=== PATIENT | male | born 1965 | race Caucasian/White ===

== ENCOUNTER 2024-06-07 09:02 | Emergency (ER) | payer OTHER, SELFPAY ==
--- NOTE | ~2024-06-07 | XR_ITS ---
EXAMINATION: XR FINGER, LEFT CLINICAL INFORMATION: laceration COMPARISON: None available. TECHNIQUE: Second digit of the left hand. FINDINGS: Acute comminuted cortical disruption involving the distal phalanx of the second digit. The carpal bones are intact. The metacarpal bones are intact. Distal radius and ulna are intact. The phalanges of the first, third fourth and fifth digits are intact. XR/XR finger LT min 2V IMPRESSION: Acute comminuted fracture, distal phalanx second digit left hand. Electronically signed by: Ryland Lewis MD 06/07/2024 09:43 AM TRAVIS
[2024-06-07 09:07] VITALS: BP 143/88; PULSE 78; RESP 18; TEMP 36; O2SAT 99; BMI 26.6
[2024-06-07 18:22] VITALS: BP 146/83; PULSE 73; RESP 16; TEMP 36.9; O2SAT 98
--- OUTSIDE RECORDS SUMMARY | 2024-06-07 18:29 | XMS_ITS | Continuity of Care Document ---
Author Organization [facility] Address [address] [place] [address]- Care Team Providers Care Product Safety Associate Name Role Phone Mckenna Bonilla MD Primary Care Physician [place] [facility] [place]/24 [facility] [address] [place], [place] [phone] Encounter Type: Triage Allergies, Adverse Reactions, Alerts Substance Criticality Severity Reaction Reaction Severity Status lisinopril headache Active Immunizations Given and Recorded Vaccine Date Status Refusal Reason tetanus/diphtheria/pertussis, acel(Tdap) 04/03/23 Given tetanus/diphtheria/pertussis, acel(Tdap) 01/02/14 Given pneumococcal 20-valent conjugate vaccine 04/03/23 Given influenza virus vaccine, inactivated 04/03/23 Give n influenza virus vaccine, inactivated 06/10/19 Give n influenza virus vaccine, inactivated 03/30/18 Give n influenza virus vaccine, inactivated 06/04/17 Give n influenza virus vaccine, inactivated 02/19/15 Give n influenza virus vaccine, inactivated 1 02/06/14 Re corded influenza virus vaccine, inactivated 2 01/30/11 Gi rodrick influenza virus vaccine, inactivated 3 01/28/10 Gi rodrick hepatitis B adult vaccine 06/10/19 Given hepatitis B adult vaccine 03/30/18 Given pneumococcal 23-valent vaccine 06/04/17 Given Measles/Mumps/Rubella Virus Vaccine 4 01/09/14 Giv en diphtheria-tetanus toxoids (DT) 5 01/16/09 Given FluLaval (oldterm) 6 01/16/09 Given Influenza Inactive (IM) (oldterm) 7 03/21/08 Given 1Location History: [facility] 2Admin Note: VIS GIVEN VIS DATE 11/19/10spanish 3Admin Note: vis given 12/04/09 4Result Comment: [01/09/2014] Reconstituted with sterile diluent Lot [id number] 06/13 5Admin Note: vis given in [place] 6Admin Note: vis given in [place] 7Admin Note: vis given Medications atorvastatin 80 mg oral tablet 1 tablet = 80 mg, By Mouth, Daily, # 90 tablet, 3 Refills, Maintenance, 04/03/23 8:38:00 AM EST, [facility]/pharmacy #[id number], label in [place], all scripts, 165.1, cm, 04/03/23 8:12:00 EST, Height Start Date: 04/03/23 Stop Date: 03/28/24 Status: Ordered Quantity: 90.0 Unit: tablet Repeat number: 4 diclofenac 1% topical gel See Instructions, PLEASE SEE ATTACHED FOR DETAILED DIRECTIONS, # 100 Gm, 1 Refills, Maintenance, 06/29/23 2:35:00 PM EST, [facility] STORE [id number], 25, PLEASE SEE ATTACHED FOR DETAILED DIRECTIONS, 165.1, cm, 04/03/23 8:12:00 EST, Height Start Date: 06/29/23 Status: Ordered Quantity: 100.0 Unit: g Repeat number: 1 diclofenac 1% topical gel 1 application, Topically, 4 times a day, do not use for more than 7 days, # 100 Gm, 0 Refills, Maintenance, 08/17/23 1:17:00 PM EDT, Gel, [facility]/pharmacy #[id number], Partial fill upon patient request if the prescription is for a schedule II opioid drug., 168, cm, 08/17/23 8:30:00 EDT, Height, 77, kg, 08/17/23 8:30:00 EDT, Dry Weight Start Date: 08/17/23 Status: Ordered Quantity: 100.0 Unit: g Repeat number: 1 dulaglutide 1.5 mg/0.5 mL subcutaneous solution = 1.5 mg, Subcutaneous Infusion, Every week, rotate injection sites., # 4 each, 5 Refills, Maintenance, 05/03/24 7:14:00 PM EST, [facility]/pharmacy #[id number], label in [place], all scripts, 168, cm, 11/18/23 9:45:00 EDT, Height, 77, kg, 08/17/23 8:30:00 EDT, Dry Weight Start Date: 05/03/24 Stop Date: 10/18/24 Status: Ordered Quantity: 4.0 Unit: each Repeat number: 6 Indication: Type 2 diabetes mellitus without complications FLUoxetine 20 mg oral capsule via psychiatry, Refills 0, Maintenance, 04/03/23 8:46:00 AM EST Start Date: 04/03/23 Status: Ordered Repeat number: 1 FREESTYLE 28G LANCETS FREESTYLE 28G LANCETS, See Instructions, # 200 Unknown, 1 Refills, Maintenance, USE DIRECTED TO TEST BLOOD GLUCOSE 3 TIMES A DAY FOR TYPE 2 DIABETES MELLITUS, 02/11/24 1:01:00 PM EDT, 168, cm, 11/18/23 9:45:00 EDT, Height, 77, kg, 08/17/23 8:30:00 EDT, Dry Weight Start Date: 02/11/24 Status: Ordered Quantity: 200.0 Unit: Unknown Repeat number: 1 Freestyle Lancets See Instructions, # 200 each, Refills 1, Tot. Refills 1, Maintenance, Dx E11.9 use as directed to test blood glucose TID for Type 2 Diabetes Mellitus duration lifetime, 11/16/23 11:25:00 AM EDT, Supply, 168, cm, 08/18/23 10:41:00 EDT, Height, 77, kg, 08/17/23 8:30:00 EDT, Dry Weight Start Date: 11/16/23 Status: Ordered Quantity: 200.0 Unit: each Repeat number: 2 Freestyle Lite Test Strips See Instructions, # 300 each, Refills 1, Tot. Refills 1, Maintenance, Dx E11.9 use as directed to test blood glucose TID Duration lifetime, 11/16/23 11:26:00 AM EDT, Supply, 168, cm, 08/18/23 10:41:00EDT, Height, 77, kg, 08/17/23 8:30:00 EDT, Dry Weight Start Date: 11/16/23 Status: Ordered Quantity: 300.0 Unit: each Repeat number: 2 glucose 4 gm oral tablet, chewable 4 tablet = 16 Gm, Chew, Once, PRN for low blood sugar, as needed for low blood sugar. may repeat in15 to 20 minutes if blood sugar still < 60 mg/dL, # 50 tablet, 3 Refills, Soft Stop, 04/03/23 8:38:00 AM EST, Chew Tablet, [facility]/pharmacy #[id number], label in [place], 165.1, cm, 04/03/23 8:12:00 EST, Height Start Date: 04/03/23 Status: Ordered Quantity: 50.0 Unit: tablet Repeat number: 4 ibuprofen 400 mg oral tablet 400 mg, 1, tablet, By Mouth, 2 times a day with meals, PRN, # 20 tablet, Refills 0, Tot. Refills 0,Maintenance, for fever, 09/23/22 1:16:00 PM EDT, Route to Pharmacy Electronically, [facility]/pharmacy #[id number], label in [place], 165.1, cm, 09/23/22 9:42:00 EDT, Height Start Date: 09/23/22 Stop Date: 10/03/22 Status: Ordered Quantity: 20.0 Unit: tablet Repeat number: 1 lamotrigine 150 mg oral tablet See Instructions, TOME ELLYN TABLETA DOS VECES AL KAREEN, # 180 tablet, 3 Refills, Maintenance, :54:00 PM EST, [id number], 168, cm, 11/18/23 9:45:00 EDT, Height, 77, kg, 08/17/23 8:30:00 EDT, Dry Weight Start Date: 04/19/24 Status: Ordered Quantity: 180.0 Unit: tablet Repeat number: 1 levETIRAcetam 1000 mg oral tablet See Instructions, TOME ELLYN TABLETA DOS VECES AL KAREEN, # 180 tablet, 3 Refills, Maintenance, 10/07/23 9:38:00 AM EDT, [id number], 168, cm, 08/18/23 10:41:00 EDT, Height, 77, kg, 08/17/23 8:30:00 EDT, Dry Weight Start Date: 10/07/23 Status: Ordered Quantity: 180.0 Unit: tablet Repeat number: 1 Lidoderm 5% film 1 patch, Topically, Daily, remove patches after 12 hours, # 10 patch, 0 Refills, Maintenance, 08/17/23 1:17:00 PM EDT, [facility]/pharmacy #[id number], Partial fill upon patient request if the prescription is for a schedule II opioid drug., 1 patch Topically Daily,Instr:remove patches after 12 hours, 168, cm, 08/17/23 8:30:00 EDT, Height, 77, kg, 08/17/23 8:30:00 EDT, Dry Weight Start Date: 08/17/23 Status: Ordered Quantity: 10.0 Unit: patch Repeat number: 1 losartan 50 mg oral tablet See Instructions, JOSSELINE BOONE ROBIN JUÁREZ, # 90 tablet, 3 Refills, Maintenance, 03/15/24 2:26:00 PM EST, [facility] STORE [id number], 168, cm, 11/18/23 9:45:00 EDT, Height, 77, kg, 08/17/23 8:30:00 EDT, Dry Weight Start Date: 03/15/24 Status: Ordered Quantity: 90.0 Unit: tablet Repeat number: 1 metFORMIN 750 mg oral tablet, extended release 1 tablet = 750 mg, By Mouth, 2 times a day before breakfast and dinne, with evening meal, # 180 tablet, 4 Refills, Maintenance, 06/05/23 4:47:00 PM EST, ER Tablet, [facility]/pharmacy #[id number], Partial fill uponpatient request if the prescription is for a schedule II opioid drug., 165.1, cm, 04/03/23 8:12:00 EST, Height Start Date: 06/05/23 Status: Ordered Quantity: 180.0 Unit: tablet Repeat number: 5 Indication: Type 2 diabetes mellitus without complications traZODone 50 mg oral tablet via psychiatry, Refills 0, Maintenance, 04/03/23 8:46:00 AM EST Start Date: 04/03/23 Status: Ordered Repeat number: 1 Problem List Condition Confirmation Course Effective Dates Status H ealth Status Informant [place] cardiac risk 10% in next 10 years Confirmed 2017 Active Cataract 1 Confirmed Active Chorioretinal scar of right eye 2 Confirmed Active Seizure, complex partial Confirmed Active Ischemic changes, chronic small vessel. on MRI 3, 4 Confirmed 04/2018 Active Depression 5 Confirmed Active Nasal septal deviation, per ENT -2014 Confirmed Active Diabetes mellitus Confirmed 2016 Active Dyslipidemia Confirmed Active Cardiac risk 14% /10 years per 2020 calculation Confirmed 2019 Active H/O colonoscopy Confirmed 10/2013 Active Hypertrophy, nasal, turbinate, per ENT Confirmed Active IFG (impaired fasting glucose) Confirmed Active Positive QuantiFERON-TB Gold test , mised TB team visit [id number], wrote letter to von Confirmed Active Abnormal brain MRI - and has arachnoid cyst Confirmed 03/2022 Active Sleep apnea, obstructive Confirmed Active Overweight Confirmed Active *[facility]N/[facility]/Banking Specialist-Chio Lopez-[phone]/Health halfway, active care coordination Confirmed Active 1bilateral 2per eye team note 3again on [facility] MRI 4per 04-29-2018 [place] [facility] 5see 01-16-09 visit note. hospitalized in [place] around 1998 Social History Social History Type Response Smoking Status Never smoker entered on: 10/04/13 Sex Male Sex Representation Male (finding) Patient Care team information Care Team Personnel Name: Mckenna Bonilla MD Position: [facility] Physician - Primary Care Member Role: PCP Address: [address] [place] [address] Telecom: Care Team Related Persons Name: GENEVIEVE FRANK Name: RICA ROQUE Name: JYOTHI SANCHEZ Insurance Providers Guarantor name: GUERITA GARCIASUS Health Plan Information #: 1 Payer: [facility] CARE ALLIANCE/ONE CARE Member Number: NA Policy Number: NA Group Number: NA Health Plan Information #: 2 Payer: [facility] Member Number: NA Policy Number: NA Group Number: NA
--- OUTSIDE RECORDS SUMMARY | 2024-06-07 18:29 | XMS_ITS | Continuity of Care Document ---
Author Organization [facility] Address [address] [place] [address]- Care Team Providers Care Gun Number Name Role Phone Mckenna Bonilla MD Primary Care Physician [place] [facility] [place](s): 04/29/24 - 05/29/24 [facility] [address] [place], [place] [address] [[email or web address] Encounter Type: Triage Allergies, Adverse Reactions, Alerts [...] (IM) (oldterm) 7 03/21/08 Given 1Location History: [facility] 2Admin Note: VIS GIVEN VIS DATE 11/19/10spanish 3Admin Note: vis given 12/04/09 4Result Comment: [01/09/2014] Reconstituted with sterile diluent Lot [id number] 06/13 5Admin Note: vis given in Iranian 6Admin Note: vis given in Iranian 7Admin Note: vis given Medications atorvastatin 80 mg oral tablet 1 tablet = 80 mg, By Mouth, Daily, # 90 tablet, 3 Refills, Maintenance, 04/03/23 8:38:00 AM EST, [facility]/pharmacy #[id number], label in [place], all scripts, 165.1, cm, 04/03/23 8:12:00 EST, Height Start Date: 04/03/23 Stop Date: 03/28/24 Status: Ordered Quantity: 90.0 Unit: tablet Repeat number: 4 diclofenac 1% topical gel See Instructions, PLEASE SEE ATTACHED FOR DETAILED DIRECTIONS, # 100 Gm, 1 Refills, Maintenance, 06/29/23 2:35:00 PM EST, [facility] STORE 61498, 25, PLEASE SEE ATTACHED FOR DETAILED DIRECTIONS, 165.1, cm, 04/03/23 8:12:00 EST, Height Start Date: 06/29/23 Status: Ordered Quantity: 100.0 Unit: g Repeat number: 1 diclofenac 1% topical gel 1 application, Topically, 4 times a day, do not use for more than 7 days, # 100 Gm, 0 Refills, Maintenance, 08/17/23 1:17:00 PM EDT, Gel, [facility]/pharmacy #0373, Partial fill upon [...] 5 Refills, Maintenance, 05/03/24 7:14:00 PM EST, [facility]/pharmacy #0373, label in Iranian, all scripts, 168, cm, 11/18/23 9:45:00 EDT, [...] Stop, 04/03/23 8:38:00 AM EST, Chew Tablet, [facility]/pharmacy #0373, label in Iranian, 165.1, cm, 04/03/23 8:12:00 EST, Height Start Date: 04/03/23 Status: Ordered Quantity: 50.0 Unit: tablet Repeat number: 4 ibuprofen 400 mg oral tablet 400 mg, 1, tablet, By Mouth, 2 times a day with meals, PRN, # 20 tablet, Refills 0, Tot. Refills 0,Maintenance, for fever, 09/23/22 1:16:00 PM EDT, Route to Pharmacy Electronically, [facility]/pharmacy #[id number], label in Iranian, 165.1, cm, 09/23/22 9:42:00 EDT, Height Start Date: 09/23/22 Stop Date: 10/03/22 Status: Ordered Quantity: 20.0 Unit: tablet Repeat number: 1 lamotrigine 150 mg oral tablet See Instructions, TOME ELLYN TABLETA DOS VECES AL KAREEN, # 180 tablet, 3 Refills, Maintenance, :54:00 PM EST, [email or web address] STORE [id number], 168, cm, 11/18/23 9:45:00 EDT, Height, 77, kg, 08/17/23 8:30:00 EDT, Dry Weight Start Date: 04/19/24 Status: Ordered Quantity: 180.0 Unit: tablet Repeat number: 1 levETIRAcetam 1000 mg oral tablet See Instructions, TOME ELLYN TABLETA DOS VECES AL KAREEN, # 180 tablet, 3 Refills, Maintenance, 10/07/23 9:38:00 AM EDT, [email or web address] STORE [facility]6534, 168, cm, 08/18/23 10:41:00 EDT, Height, 77, kg, 08/17/23 8:30:00 EDT, Dry Weight Start Date: 10/07/23 Status: Ordered Quantity: 180.0 Unit: tablet Repeat number: 1 Lidoderm 5% film 1 patch, Topically, Daily, remove patches after 12 hours, # 10 patch, 0 Refills, Maintenance, 08/17/23 1:17:00 PM EDT, [facility]/pharmacy #[id number], Partial fill upon [...] 3 Refills, Maintenance, 03/15/24 2:26:00 PM EST, [facility] STORE 66941, 168, cm, 11/18/23 9:45:00 EDT, Height, 77, kg, 08/17/23 8:30:00 EDT, Dry Weight Start Date: 03/15/24 Status: Ordered Quantity: 90.0 Unit: tablet Repeat number: 1 metFORMIN 750 mg oral tablet, extended release 1 tablet = 750 mg, By Mouth, 2 times a day before breakfast and dinne, with evening meal, # 180 tablet, 4 Refills, Maintenance, 06/05/23 4:47:00 PM EST, ER Tablet, [facility]/pharmacy #0373, Partial fill uponpatient [...] Effective Dates Status H ealth Status Informant [place] cardiac risk 10% in next 10 years [...] Gold test , mised TB team visit 10333, wrote letter to von Confirmed Active Abnormal brain MRI - and has arachnoid cyst Confirmed 03/2022 Active Sleep apnea, obstructive Confirmed Active Overweight Confirmed Active *[facility]/Associate Professor Of Library Media-Chio Lopez-[phone]/Health [facility], active care coordination Confirmed Active 1bilateral 2per eye team note 3again on [facility] MRI 4per 04-29-2018 [place] [facility] 5see 01-16-09 visit note. hospitalized in [place] around 1998 Social History Social History Type Response Smoking Status Never smoker entered on: 10/04/13 Sex Male Sex Representation Male (finding) Patient Care team information Care Team Personnel Name: Mckenna Bonilla MD Position: [facility] Physician - Primary Care Member Role: PCP Address: [address] [place] [address] Telecom: Care Team Related Persons Name: GENEVIEVE FRANK Name: RICA ROQUE Name: JYOTHI SANCHEZ Insurance Providers Guarantor name: GUERITA GARCIASUS Health Plan Information #: 1 Payer: [facility] C[facility] ALLIANCE/ONE CARE Member Number: NA Policy Number: NA Group Number: NA Health Plan Information #: 2 Payer: [facility] Member Number: NA Policy Number: NA Group Number: NA
--- NOTE | 2024-06-07 18:55 | ED_ITS ---
HPI - Wound/Laceration General Chief Complaint: Wound/Laceration Stated Complaint: Finger lac Time Seen by Provider: 06/07/24 18:54 Source: patient and family (Sister) Mode of arrival: ambulatory Limitations: language barrier (1st language is Tunisian, speaks some Taiwanese, [facility] [place] translator and interpreter used) History of Present Illness ED Provider: Dr. Reymundo Deal HPI narrative: 59-year-old male with a history of diabetes who accidentally dropped an air compressor on his left index finger yesterday at around 11:00 hours. Patient states that he was concerned that his finger continued to bleed and that he was a diabetic therefore he came to the emergency department for evaluation. At the time my evaluation, the injury is 20 hours old. Patient was not know in his last tetanus vaccine was given. Related Data Previous Rx's ?Medication ?Instructions ?Recorded cephalexin 500 mg capsule 500 mg PO QID 7 days #28 caps 06/07/24 oxycodone 5 mg tablet 5 mg PO Q6H PRN pain #10 tabs 06/07/24 Allergies Allergy/AdvReac Type Severity Reaction Status Date / Time No Known Allergies Allergy Verified 06/07/24 09:09 Review of Systems 2 Review of Systems: Yes all other systems are reviewed and are negative PMFSH Social History Social History Smoked in Last 30 Days: No Use of substances other than those prescribed or required for medical reasons: No Advance Directives: No Advance Directives Information Provided: No Do you have a plan to hurt others: No Plan Physical Exam 2 Vital Signs: Vital Signs: Last Vital Signs Temp 98.5 F 06/07/24 18:22 Pulse 73 06/07/24 18:22 Resp 16 06/07/24 18:22 BP 146/83 H 06/07/24 18:22 Pulse Ox 98 06/07/24 18:22 O2 Del Method Room Air 06/07/24 18:22 BMI result Body Mass Index 26.6 Vital signs revealed an elevated blood pressure of 146/83 Exam: General: Awake, alert in no distress Extremities: There is ecchymosis and soft tissue swelling to the tip of the left index finger with a slight medial deformity of the tip, there is a superficial laceration which is almost circumferential. There is no obvious bone protruding from the skin. Patient has diminished light touch at the tip of the finger but this is secondary to soft tissue swelling. Psych: Pleasant, cooperative Medical Decision Making Medical Decision Making MDM Narrative: 59-year-old male with a history of diabetes who accidentally dropped an air compressor on his left index finger yesterday at around 11:00 hours. Physical examination revealed a near circumferential superficial with a crush injury to the distal phalanx. Patient was diminished touch at the tip of the finger but this is most likely caused by soft tissue swelling Differential diagnosis: ?Includes but is not limited to distal phalanx open fracture verses closed fracture, crush injury Course: 19:52 The patient's x-rays did reveal a comminuted fracture of the distal phalanx of the index finger. At this time I do not think that the patient has an open fracture and his injury is more consistent with a crush injury. I did dress the wound with bacitracin and a nonstick dressing. The patient's index middle and ring fingers were then taped together and placed in a ortho glass finger to wrist splint that was made by me. After application of the splint the patient's fingers appeared to be neurovascularly intact. Patient was given a Tdap vaccination. He was also given his 1st dose of Keflex 500 mg orally. He was started on Keflex 500 mg 4 times a day for 7 days prophylactically to try to prevent infection. I did discuss the patient's injury and management over tiger text with the orthopedic physician inside sales assistant, Sascha Clifton who agreed with the treatment plan and recommended follow-up with the orthopedic group for further management. Patient was given printed and verbal instructions and discharged home. Admission/Observation Consideration of admission/observation: Escalation of care including admission/observation considered (No) Independent Interpretation I performed an independent interpretation of an: Plain X-Ray Interpretation: My interpretation of the patient's left index finger your x-ray is as follows: Comminuted fracture of the distal phalanx Radiology Impression Discussion of test interpretation with radiology: I have reviewed the radiologist's reading. Radiologist Impression: EXAMINATION: XR FINGER, LEFT CLINICAL INFORMATION: laceration COMPARISON: None available. TECHNIQUE: Second digit of the left hand. FINDINGS: Acute comminuted cortical disruption involving the distal phalanx of the second digit. The carpal bones are intact. The metacarpal bones are intact. Distal radius and ulna are intact. The phalanges of the first, third fourth and fifth digits are intact. XR/XR finger LT min 2V IMPRESSION: Acute comminuted fracture, distal phalanx second digit left hand. Electronically signed by: Ryland Lewis MD 06/07/2024 09:43 AM Independent Historian Clinical information obtained from an independent historian. History obtained from or confirmed by: Other (Sister) Prescription Management I considered prescription management with: Pain Medication (Oxycodone) and Antibiotic (Keflex) Chronic Conditions Patient?s care impacted by: Diabetes Procedures Procedure Narrative Procedure Narrative: Left index finger comminuted distal phalanx fracture secondary to crush injury with superficial laceration, ortho glass splint application procedure note The patient's laceration was cleaned and dressed with a bacitracin nonstick dressing. The patient's index middle and ring fingers were alex-taped and a ortho glass splint covering the 3 fingers and extending to the wrist was made out of 3 in x 12 in ortho glass. The splint was held in place with two 3 in Jorge wraps. After application the patient was able to wiggle his fingers in his fingers appear to be neurovascularly intact. Splint was applied by me in the emergency department. Discharge Plan Discharge Clinical Impression: Closed comminuted fracture of distal phalanx of finger, Fracture of distal phalanx of left index finger Patient Disposition: Home, Self-Care Instructions: Finger Fracture (ED) Additional Instructions: You broke the distal phalanx of your index finger. This is broken into several pieces. You also crushed the tip of your finger which caused the superficial cuts around the finger. You were placed in a splint, do not get the splint wet and keep it in place until you follow-up with the orthopedic providers. Take Keflex 500 mg pills, 1 pill 4 times a day for 7 days to try to prevent an infection of your finger. Take ibuprofen 200 mg pills, 3 pills every 6 hours as needed for pain. Take Tylenol (acetaminophen) 500 mg pills, 2 pills every 4-6 hours as needed for pain. For pain not relieved by ibuprofen or Tylenol take oxycodone 5 mg pills, 1 pill every 4 hours as needed for pain. Do not drive or work while taking this medication since they can cause sleepiness. Oxycodone is a narcotic medication that can be addicting. If you are concerned about addiction you can ask the pharmacist for less pills or do not get this prescription filled. Call the orthopedic office tomorrow to t make a follow-up appointment within 3-7 days. Please return to the emergency department if your symptoms get worse or if you develop any symptoms that are concerning to you. Prescriptions: New oxycodone 5 mg tablet 5 mg PO Q6H PRN (Reason: pain) Qty: 10 0RF Rx Instructions: Patient may request partial refill; Partial Fill upon patient request. cephalexin 500 mg capsule 500 mg PO QID 7 Days Qty: 28 0RF Referrals: Ethan Mazariegos MD [Physician] - 1 week (Crush injury to left distal phalanx index finger, comminuted fracture of the distal phalanx with circumferential superficial laceration. Needs follow-up in 3-7 days. Patient placed in ortho glass splint.) Print Language: Tunisian
[2024-06-07] MEDS: Diphth,Pertus(ACell),Tet Adult 0.5 ML SYRINGE IM (19:54)
[2024-06-07] MEDS: Bacitracin Oint 0.9 GM PACKET 1 APPL TOPICAL (19:54)
[2024-06-07 19:59] VITALS: BP 136/91; PULSE 81; RESP 16; TEMP 36.7; O2SAT 98
[2024-06-07 20:23] VITALS: BP 136/91; PULSE 81; RESP 16; TEMP 36.7; O2SAT 98
[2024-06-07] MEDS: cephALEXin 500 MG CAPSULE PO (20:25)
== END 2024-06-07 20:27 | disposition home or self-care (01) ==
PROVIDERS: Emergency Provider Emergency Medicine Emergency Medical Services
DX: S62.631A Displaced fracture of distal phalanx of left index finger, initial encounter for closed fracture (principal); S61.211A Laceration without foreign body of left index finger without damage to nail, initial encounter; S60.022A Contusion of left index finger without damage to nail, initial encounter; M79.645 Pain in left finger(s); W45.8XXA Other foreign body or object entering through skin, initial encounter; Y93.9 Activity, unspecified; Y92.9 Unspecified place or not applicable; Y99.8 Other external cause status; Z23 Encounter for immunization
CPT/HCPCS: 29130; 73140; 90471; 90715; 99284

== ENCOUNTER → 2024-06-07 09:24 | Outpatient (BNV) | payer OTHER, SELFPAY | PROVIDERS: Visit Provider Radiology Diagnostic Radiology | DX: S62.601B Fracture of unspecified phalanx of left index finger, initial encounter for open fracture (principal) | CPT/HCPCS: 73140 ==

== ENCOUNTER 2024-06-10 08:11 | Outpatient (REF) | payer OTHER, SELFPAY ==
--- NOTE | ~2024-06-10 | XR_ITS ---
EXAMINATION: XR HAND 3 OR MORE VIEWS LEFT HISTORY: M79.642 - Pain in left hand COMPARISON: Comparison is made with the prior examination dated 06/07/2024. FINDINGS: Three views of the left hand are submitted. Osseous mineralization is normal. Again seen is a comminuted fracture of the distal phalanx of the index finger. The appearance is not significantly changed from the prior study. The joint spaces are preserved. The soft tissues are unremarkable. XR/XR hand LT min 3V IMPRESSION: Comminuted fracture of the distal phalanx of the index finger without change. Electronically signed by: Zachariah Bello MD 06/10/2024 09:34 AM EST
--- OUTSIDE RECORDS SUMMARY | 2024-06-10 08:16 | XMS_ITS | Continuity of Care Document ---
Author Organization [facility] Address [address] [place] [address]- Care Team Providers Care Spot Sprayer Name Role Phone Mckenna Bonilla MD Primary Care Physician Encounter [facility] Date(s): 05/10/24 - 06/09/24 [facility] [address] [place] [id number] Attending Physician: Admtr, [id number] Admitting Physician: Admtr, ArShala Referring Physician: Admtr, [id number] Encounter Type: Triage Allergies, Adverse Reactions, Alerts [...] (IM) (oldterm) 7 03/21/08 Given 1Location History: [facility] 2Admin Note: VIS GIVEN VIS DATE 11/19/10spani 3Admin Note: vis given 12/04/09 4Result Comment: [01/09/2014] Reconstituted with sterile diluent Lot [id number] 06/13 5Admin Note: vis given in Moroccan 6Admin Note: vis given in Moroccan 7Admin Note: vis given Medications atorvastatin 80 mg oral tablet 1 tablet = 80 mg, By Mouth, Daily, # 90 tablet, 3 Refills, Maintenance, 04/03/23 8:38:00 AM EST, [facility]/pharmacy #[id number], label in Moroccan, all scripts, 165.1, cm, 04/03/23 8:12:00 EST, Height Start Date: 04/03/23 Stop Date: 03/28/24 Status: Ordered Quantity: 90.0 Unit: tablet Repeat number: 4 diclofenac 1% topical gel See Instructions, PLEASE SEE ATTACHED FOR DETAILED DIRECTIONS, # 100 Gm, 1 Refills, Maintenance, 06/29/23 2:35:00 PM EST, [id number], 25, PLEASE SEE ATTACHED FOR DETAILED DIRECTIONS, 165.1, cm, 04/03/23 8:12:00 EST, Height Start Date: 06/29/23 Status: Ordered Quantity: 100.0 Unit: g Repeat number: 1 diclofenac 1% topical gel 1 application, Topically, 4 times a day, do not use for more than 7 days, # 100 Gm, 0 Refills, Maintenance, 08/17/23 1:17:00 PM EDT, Gel, [facility]/pharmacy #[id number], Partial fill upon patient request [...] 5 Refills, Maintenance, 05/03/24 7:14:00 PM EST, [facility]/pharmacy #[id number], label in Moroccan, all scripts, 168, cm, 11/18/23 9:45:00 EDT, [...] Stop, 04/03/23 8:38:00 AM EST, Chew Tablet, [facility]/pharmacy #[id number], label in Moroccan, 165.1, cm, 04/03/23 8:12:00 EST, Height Start Date: 04/03/23 Status: Ordered Quantity: 50.0 Unit: tablet Repeat number: 4 ibuprofen 400 mg oral tablet 400 mg, 1, tablet, By Mouth, 2 times a day with meals, PRN, # 20 tablet, Refills 0, Tot. Refills 0,Maintenance, for fever, 09/23/22 1:16:00 PM EDT, Route to Pharmacy Electronically, [facility]/pharmacy #[id number], label in Moroccan, 165.1, cm, 09/23/22 9:42:00 EDT, Height Start Date: 09/23/22 Stop Date: 10/03/22 Status: Ordered Quantity: 20.0 Unit: tablet Repeat number: 1 lamotrigine 150 mg oral tablet See Instructions, TOME ELLYN TABLETA DOS VECES AL KAREEN, # 180 tablet, 3 Refills, Maintenance, :54:00 PM EST, [id number], 168, cm, 11/18/23 9:45:00 EDT, Height, 77, kg, 08/17/23 8:30:00 EDT, Dry Weight Start Date: 04/19/24 Status: Ordered Quantity: 180.0 Unit: tablet Repeat number: 1 levETIRAcetam 1000 mg oral tablet See Instructions, TOME ELLYN TABLETA DOS VECES AL KAREEN, # 180 tablet, 3 Refills, Maintenance, 10/07/23 9:38:00 AM EDT, [facility], 168, cm, 08/18/23 10:41:00 EDT, Height, 77, kg, 08/17/23 8:30:00 EDT, Dry Weight Start Date: 10/07/23 Status: Ordered Quantity: 180.0 Unit: tablet Repeat number: 1 Lidoderm 5% film 1 patch, Topically, Daily, remove patches after 12 hours, # 10 patch, 0 Refills, Maintenance, 08/17/23 1:17:00 PM EDT, [facility]/pharmacy #[id number], Partial fill upon patient request if the prescription is for a schedule II opioid drug., 1 patch Topically Daily,Instr:remove patches after 12 hours, 168, cm, 08/17/23 8:30:00 EDT, Height, 77, kg, 08/17/23 8:30:00 EDT, Dry Weight Start Date: 08/17/23 Status: Ordered Quantity: 10.0 Unit: patch Repeat number: 1 losartan 50 mg oral tablet See Instructions, JOSSELINE RAMONA TODOS LOS JUÁREZ, # 90 tablet, 3 Refills, Maintenance, 03/15/24 2:26:00 PM EST, [id number], 168, cm, 11/18/23 9:45:00 EDT, Height, 77, kg, 08/17/23 8:30:00 EDT, Dry Weight Start Date: 03/15/24 Status: Ordered Quantity: 90.0 Unit: tablet Repeat number: 1 metFORMIN 750 mg oral tablet, extended release 1 tablet = 750 mg, By Mouth, 2 times a day before breakfast and dinne, with evening meal, # 180 tablet, 4 Refills, Maintenance, 06/05/23 4:47:00 PM EST, ER Tablet, [facility]/pharmacy #[id number], Partial fill uponpatient request if [...] Effective Dates Status H ealth Status Informant [place] cardiac risk 10% in next 10 years Confirmed 2017 Active Cataract 1 Confirmed Active Chorioretinal scar of right eye 2 Confirmed Active Seizure, complex partial Confirmed Active Ischemic changes, chronic small vessel. on MRI 3, 4 Confirmed 04/2018 Active Depression 5 Confirmed Active Nasal septal deviation, per ENT -2014 Confirmed Active Diabetes mellitus Confirmed 2017 Active Dyslipidemia Confirmed Active Cardiac risk 14% /10 years per 2020 calculation Confirmed 2020 Active H/O colonoscopy Confirmed 10/2013 Active Hypertrophy, nasal, turbinate, per ENT Confirmed Active IFG (impaired fasting glucose) Confirmed Active Positive QuantiFERON-TB Gold test , mised TB team visit 38635, wrote letter to rebook 6 Confirmed Active Abnormal brain MRI - and has arachnoid cyst Confirmed 03/2022 Active Sleep apnea, obstructive Confirmed Active Overweight Confirmed Active *[facility]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 hospitalized in [place] around 1998 6TB clinic NOS x 2- referral closed Social History Social History Type Response Smoking Status Never smoker entered on: 10/04/13 Sex Male Sex Representation Male (finding) Patient Care team information Care Team Personnel Name: Mckenna Bonilla MD Position: [facility] Physician - Primary Care Member Role: PCP Address: [address] [place] [address] Telecom: Care Team Related Persons Name: GENEVIEVE FRANK Name: RICA ROQUE Name: JYOTHI SANCHEZ Insurance Providers Guarantor name: GUERITA OSCAR JESUS Health Plan Information #: 1 Payer: [facility] CARE ALLIANCE/ONE CARE Member Number: NA Policy Number: NA Group Number: NA
--- OUTSIDE RECORDS SUMMARY | 2024-06-10 08:16 | XMS_ITS | Continuity of Care Document ---
Author Organization [facility] Address [address] [place] [address]- Care Team Providers Care Coil Winding Supervisor Name Role Phone Mckenna Bonilla MD Primary Care Physician Encounter [facility] NBR [id number] Date(s): 05/04/24 - 06/09/24 [facility] [address] [place] [address] Attending Physician: Michelle West MD Admitting Physician: Michelle West MD Encounter Type: Pre-OutPatient One Time Allergies, Adverse Reactions, Alerts Substance Criticality Severity [...] (IM) (oldterm) 7 03/21/08 Given 1Location History: [facility] 2Admin Note: VIS GIVEN VIS DATE 11/19/10spanish 3Admin Note: vis given 12/04/09 4Result Comment: [01/09/2014] Reconstituted with sterile diluent Lot [id number] 06/13 5Admin Note: vis given in Uzbek 6Admin Note: vis given in Uzbek 7Admin Note: vis given Medications atorvastatin 80 mg oral tablet 1 tablet = 80 mg, By Mouth, Daily, # 90 tablet, 3 Refills, Maintenance, 04/03/23 8:38:00 AM EST, [facility]/pharmacy #[id number], label in Uzbek, all scripts, 165.1, cm, 04/03/23 8:12:00 EST, Height Start Date: 04/03/23 Stop Date: 03/28/24 Status: Ordered Quantity: 90.0 Unit: tablet Repeat number: 4 diclofenac 1% topical gel See Instructions, PLEASE SEE ATTACHED FOR DETAILED DIRECTIONS, # 100 Gm, 1 Refills, Maintenance, 06/29/23 2:35:00 PM EST, [facility], 25, PLEASE SEE ATTACHED FOR DETAILED DIRECTIONS, 165.1, cm, 04/03/23 8:12:00 EST, Height Start Date: 06/29/23 Status: Ordered Quantity: 100.0 Unit: g Repeat number: 1 diclofenac 1% topical gel 1 application, Topically, 4 times a day, do not use for more than 7 days, # 100 Gm, 0 Refills, Maintenance, 08/17/23 1:17:00 PM EDT, Gel, [facility]/pharmacy #[id number], Partial fill upon patient request [...] 5 Refills, Maintenance, 05/03/24 7:14:00 PM EST, [facility]/pharmacy #[id number], label in Uzbek, all scripts, 168, cm, 11/18/23 9:45:00 EDT, [...] Stop, 04/03/23 8:38:00 AM EST, Chew Tablet, [facility]/pharmacy #0373, label in Uzbek, 165.1, cm, 04/03/23 8:12:00 EST, Height Start Date: 04/03/23 Status: Ordered Quantity: 50.0 Unit: tablet Repeat number: 4 ibuprofen 400 mg oral tablet 400 mg, 1, tablet, By Mouth, 2 times a day with meals, PRN, # 20 tablet, Refills 0, Tot. Refills 0,Maintenance, for fever, 09/23/22 1:16:00 PM EDT, Route to Pharmacy Electronically, [facility]/pharmacy #[id number], label in Uzbek, 165.1, cm, 09/23/22 9:42:00 EDT, Height Start Date: 09/23/22 Stop Date: 10/03/22 Status: Ordered Quantity: 20.0 Unit: tablet Repeat number: 1 lamotrigine 150 mg oral tablet See Instructions, TOME ELLYN TABLETA DOS VECES AL KAREEN, # 180 tablet, 3 Refills, Maintenance, :54:00 PM EST, [facility], 168, cm, 11/18/23 9:45:00 EDT, Height, 77, kg, 08/17/23 8:30:00 EDT, Dry Weight Start Date: 04/19/24 Status: Ordered Quantity: 180.0 Unit: tablet Repeat number: 1 levETIRAcetam 1000 mg oral tablet See Instructions, TOME ELLYN TABLETA DOS VECES AL KAREEN, # 180 tablet, 3 Refills, Maintenance, 10/07/23 9:38:00 AM EDT, [facility], 168, cm, 08/18/23 10:41:00 EDT, Height, 77, kg, 08/17/23 8:30:00 EDT, Dry Weight Start Date: 10/07/23 Status: Ordered Quantity: 180.0 Unit: tablet Repeat number: 1 Lidoderm 5% film 1 patch, Topically, Daily, remove patches after 12 hours, # 10 patch, 0 Refills, Maintenance, 08/17/23 1:17:00 PM EDT, [facility]/pharmacy #[id number], Partial fill upon patient request if the prescription is for a schedule II opioid drug., 1 patch Topically Daily,Instr:remove patches after 12 hours, 168, cm, 08/17/23 8:30:00 EDT, Height, 77, kg, 08/17/23 8:30:00 EDT, Dry Weight Start Date: 08/17/23 Status: Ordered Quantity: 10.0 Unit: patch Repeat number: 1 losartan 50 mg oral tablet See Instructions, JOSSELINE RAMONA TOS LOS JUÁREZ, # 90 tablet, 3 Refills, Maintenance, 03/15/24 2:26:00 PM EST, [facility], 168, cm, 11/18/23 9:45:00 EDT, Height, 77, kg, 08/17/23 8:30:00 EDT, Dry Weight Start Date: 03/15/24 Status: Ordered Quantity: 90.0 Unit: tablet Repeat number: 1 metFORMIN 750 mg oral tablet, extended release 1 tablet = 750 mg, By Mouth, 2 times a day before breakfast and dinne, with evening meal, # 180 tablet, 4 Refills, Maintenance, 06/05/23 4:47:00 PM EST, ER Tablet, [facility]/pharmacy #[id number], Partial fill uponpatient request if [...] Effective Dates Status H ealth Status Informant [place] cardiac risk 10% in next 10 years [...] Gold test , mised TB team visit 44523, wrote letter to rebook 6 Confirmed Active Abnormal brain MRI - and has arachnoid cyst Confirmed 03/2022 Active Sleep apnea, obstructive Confirmed Active Overweight Confirmed Active *[facility]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 hospitalized in [place] around 1998 6TB clinic NOS x 2- referral closed Social History Social History Type Response Smoking Status Never smoker entered on: 10/04/13 Sex Male Sex Representation Male (finding) Patient Care team information Care Team Personnel Name: Mckenna Bonilla MD Position: [facility] Physician - Primary Care Member Role: PCP Address: [address] [place] [address] Telecom: Care Team Related Persons Name: GENEVIEVE FRANK Name: RICA ROQUE Name: JYOTHI SANCHEZ Insurance Providers Guarantor name: GUERITA GARCIASUS Health Plan Information #: 1 Payer: [facility] CARE ALLIANCE/ONE CARE Member Number: [id number] Policy Number: NA Group Number: [facility] Health Plan Information #: 2 Payer: [facility] Member Number: [id number] Policy Number: NA Group Number: NA
== END 2024-06-10 08:12 | disposition home or self-care (01) ==
LOC: HO.HOSX 08:11
DX: S62.601B Fracture of unspecified phalanx of left index finger, initial encounter for open fracture (principal)
CPT/HCPCS: 73130; 99202

== ENCOUNTER 2024-06-10 09:00 | Outpatient (AMB) | payer OTHER, SELFPAY ==
--- NOTE | 2024-06-10 09:12 | MHC.OFFVIS ---
Vital Signs 06/10/24 09:20 Height 5 ft 8 in Weight 175 lb BMI 26.6 Intake Visit Reasons: FC-Lt index finger comminuted distal phalanx fx Intake Note: Donald is a 59 year old right hand dominant male who presents today for a fracture care visit. On 06/06/24 he dropped an air compressor on his left index finger. He was seen at [facility] ED the day after injury, where he was treated for laceration and fracture. Denies numbness or tingling. He is currently taking Motrin and Cephalexin. He was also prescribed Oxycodone but he is not taking it. Patient denies any pain right now. Denies prior surgeries or injuries to the left index finger. Allergies No Known Allergies Allergy (Verified 06/10/24 09:18) HPI HPI FC-Lt index finger comminuted distal phalanx fx: Details: Donald is a 59 year old right hand dominant male who presents today for a fracture care visit. On 06/06/24 he dropped an air compressor on his left index finger. He was seen at [facility] the day after injury, where he was treated for laceration and fracture. Denies numbness or tingling. He is currently taking Motrin and Cephalexin. He was also prescribed Oxycodone but he is not taking it. Patient denies any pain right now. Denies prior surgeries or injuries to the left index finger. Review of Systems Const All systems reviewed & are unremarkable except as noted in HPI and below Physical Exam Vital Signs: BMI result Body Mass Index 26.6 Extrem Other: Patient is alert, oriented, and in no acute distress. Neuro: Normal sensation of the tips of all digits of the left hand at this time Vascular: Cap refill brisk Pain: Patient reports no tenderness with palpation about the laceration and fracture site ROM: Patient is able to flex and extend all other digits of the left hand fully and without difficulty Skin: There is a large, semi circumferential laceration noted on the distal aspect of the left index finger just proximal to the nail General: No ecchymosis, erythema, or evidence of infection. Psych: Appears grossly normal Affect normal Attitude cooperative Results Reviewed Results Reviewed: X-rays obtained in the office today and independently reviewed by me, Lei Kimbrough PA-C, demonstrate minimally displaced, comminuted fracture of the distal phalanx of the left index finger. Assessment & Plan Assessment & Plan (1) Open fracture of phalanx of left index finger: Code(s): S62.601B - Fracture of unspecified phalanx of left index finger, initial encounter for open fracture Category: Medical Plan 1. Open fracture of distal phalanx of the index finger Date of injury 06/07/2024 Patient is educated about this injury Patient is educated about the typical recovery course At this time, patient was informed that we can likely manage this injury nonoperatively, as the wound appears very clean and the fracture is minimally displaced Patient was given a dry nonstick dressing in the office today, given extra supplies for daily dressing changes Patient was also placed into a fingertips splint to prevent flexion at the DIP joint of the left index finger Patient is educated he should keep the wound dry at all times, should not get it wet in any way Patient should continue with antibiotics prescribed in the emergency department Patient was amenable to this plan Patient will follow-up in 1 week for wound check, sooner with any acute concerns Orders: Orders XR hand LT min 3V Today M79.642 - Pain in left hand Coding Level of Care Code New Pt Level 3 (37368) Diagnoses Open fracture of phalanx of left index finger S62.601B
[2024-06-10 09:20] VITALS: BMI 26.6
== END 2024-06-10 09:57 | disposition home or self-care (01) ==
DX: S62.601B Fracture of unspecified phalanx of left index finger, initial encounter for open fracture (principal)
CPT/HCPCS: 99203

== ENCOUNTER → 2024-06-10 09:02 | Outpatient (BNV) | payer OTHER, SELFPAY | PROVIDERS: Visit Provider Radiology Diagnostic Radiology | DX: M79.642 Pain in left hand (principal) | CPT/HCPCS: 73130 ==

== ENCOUNTER 2024-06-20 08:27 | Outpatient (AMB) | payer OTHER, SELFPAY ==
[2024-06-20 08:54] VITALS: BMI 26.6
--- NOTE | 2024-06-20 08:54 | MHC.OFFVIS ---
Vital Signs 06/20/24 08:54 Height 5 ft 8 in Weight 175 lb BMI 26.6 Intake Visit Reasons: OV - Left Index finger fracture - 06/06/24 - w/ XR Intake Note: Donald is a 59 year old right hand dominant male who presents today for follow up of his left index finger fracture. On 06/06/24 he dropped an air compressor on his left index finger. At his last visit he was instructed to complete daily dressing changes and provided a finger tip splint to prevent flexion. States a few days ago he hurt/banged his finger on the sofa and head a pop noise, he felt no pain at the moment but has mild swelling. Allergies No Known Allergies Allergy (Verified 06/20/24 09:03) HPI HPI OV - Left Index finger fracture - 06/06/24 - w/ XR: Details: Donald is a 59 year old right hand dominant male who presents today for follow up of his left index finger fracture. On 06/06/24 he dropped an air compressor on his left index finger. At his last visit he was instructed to complete daily dressing changes and provided a finger tip splint to prevent flexion. States a few days ago he hurt/banged his finger on the sofa and head a pop noise, he felt no pain at the moment but has mild swelling. Denies numbness or tingling in the left hand. Denies any discharge from the wound at this time. No other acute complaints or concerns at this time. Review of Systems Const All systems reviewed & are unremarkable except as noted in HPI and below Physical Exam Vital Signs: BMI result Body Mass Index 26.6 Extrem Other: Patient is alert, oriented, and in no acute distress. Neuro: Normal sensation of the tips of all digits of the left hand at this time Vascular: Cap refill brisk Pain: Patient reports no tenderness with palpation about the laceration and fracture site ROM: Patient is able to flex and extend all other digits of the left hand fully and without difficulty Skin: There is a large, semi circumferential healing laceration noted on the distal aspect of the left index finger just proximal to the nail General: No ecchymosis, erythema, or evidence of infection. Psych: Appears grossly normal Affect normal Attitude cooperative Results Reviewed Results Reviewed: X-rays obtained in the office today and independently reviewed by me, Lei Kimbrough PA-C, demonstrate minimally displaced, comminuted fracture of the distal phalanx of the left index finger. Assessment & Plan Assessment & Plan (1) Open fracture of phalanx of left index finger: Code(s): S62.601B - Fracture of unspecified phalanx of left index finger, initial encounter for open fracture Category: Medical Plan 1. Open fracture of distal phalanx of the index finger Date of injury 06/07/2024 Patient is educated about this injury Patient is educated about the typical recovery course At this time, patient was informed that we can likely manage this injury nonoperatively, as the wound appears very clean and the fracture is minimally displaced Patient was given a dry nonstick dressing in the office today, given extra supplies for dressing changes Patient was also placed into a fingertips splint to prevent flexion at the DIP joint of the left index finger Patient is educated that he can now wash the laceration site with soap and water in the sink or the shower, but should avoid actively submerging the hand until follow-up Patient is also advised that he will require no further antibiotics, as his laceration appears to be healing well and without complication Patient was advised that he should continue to cover the laceration site when out and about, but if he is at home and able to keep it clean and dry he can remove the dressing Patient was amenable to this plan Patient will follow-up in 2 week for wound check with repeat x-rays, sooner with any acute concerns Orders: Orders XR hand LT min 3V Today M79.642 - Pain in left hand Coding Level of Care Code Global (66491) Diagnoses Open fracture of phalanx of left index finger S62.601B
== END 2024-06-20 09:21 | disposition home or self-care (01) ==
DX: S62.601B Fracture of unspecified phalanx of left index finger, initial encounter for open fracture (principal)
CPT/HCPCS: 99213

== ENCOUNTER 2024-06-20 08:27 | Outpatient (REF) | payer OTHER, SELFPAY ==
--- NOTE | ~2024-06-20 | XR_ITS ---
EXAMINATION: XR HAND, LEFT CLINICAL INFORMATION: M79.642 - Pain in left hand COMPARISON: June 10, 2024. TECHNIQUE: PA, lateral, and oblique views of the left hand. FINDINGS: Comminuted fracture distal phalanx second digit. No callus formation. No periosteal bone reaction. Soft tissue edema distal second digit. Carpal bones are intact. Metacarpal bones are intact. The phalanges of the first, third fourth and fifth digits are intact. Distal radius and ulna are intact. XR/XR hand LT min 3V IMPRESSION: No healing comminuted fracture, distal phalanx, second digit. Electronically signed by: Ryland Lewis MD 06/21/2024 10:33 AM EST
== END 2024-06-20 08:28 | disposition home or self-care (01) ==
LOC: HO.HOSX 08:27
DX: S62.601D Fracture of unspecified phalanx of left index finger, subsequent encounter for fracture with routine healing (principal); M79.642 Pain in left hand
CPT/HCPCS: 73130; 99212

== ENCOUNTER → 2024-06-20 08:47 | Outpatient (BNV) | payer OTHER, SELFPAY | PROVIDERS: Visit Provider Radiology Diagnostic Radiology | DX: M79.642 Pain in left hand (principal) | CPT/HCPCS: 73130 ==

== ENCOUNTER 2024-07-06 08:51 | Outpatient (AMB) | payer OTHER, SELFPAY ==
--- NOTE | 2024-07-06 09:13 | MHC.OFFVIS ---
Intake Visit Reasons: OV - Left Index finger fracture - 06/06/24 - w/ XR Intake Note: Donald is a 59 year old male who presents today for a follow up of his Left Index Finger Fracture. On 06/06/24 he dropped an air compressor on the finger. At his last visit he was instructed to complete daily dry dressing changes and utilize a fingertip splint to allow working on ROM. Patient reports that he is doing well, he has no pain. Denies numbness and tingling. His wound is healing well. No Concerns at this time Allergies No Known Allergies Allergy (Verified 06/20/24 09:03) HPI HPI OV - Left Index finger fracture - 06/06/24 - w/ XR: Details: Donald is a 59 year old male who presents today for a follow up of his Left Index Finger Fracture. On 06/06/24 he dropped an air compressor on the finger. At his last visit he was instructed to complete daily dry dressing changes and utilize a fingertip splint to allow working on ROM. Patient reports that he is doing well, he has no pain. Denies numbness and tingling. His wound is healing well. No Concerns at this time Physical Exam Extrem Other: Patient is alert, oriented, and in no acute distress. Neuro: Normal sensation of the tips of all digits of the left hand at this time Vascular: Cap refill brisk Pain: Patient reports no tenderness with palpation about the laceration and fracture site ROM: Patient is able to flex and extend all other digits of the left hand fully and without difficulty Patient is able to flex to 90 degrees with the MCP joint of the left index finger Skin: There is a large, semi circumferential healing laceration noted on the distal aspect of the left index finger just proximal to the nail General: No ecchymosis, erythema, or evidence of infection. Psych: Appears grossly normal Affect normal Attitude cooperative Results Reviewed Results Reviewed: X-rays obtained in the office today and independently reviewed by me, Lei Kimbrough PA-C, demonstrate minimally displaced, comminuted fracture of the distal phalanx of the left index finger. Assessment & Plan Assessment & Plan (1) Open fracture of phalanx of left index finger: Code(s): S62.601B - Fracture of unspecified phalanx of left index finger, initial encounter for open fracture Category: Medical Plan 1. Open fracture of distal phalanx of the index finger Date of injury 06/07/2024 Patient is educated about this injury Patient is educated about the typical recovery course At this time, patient was informed that we can likely manage this injury nonoperatively, as the wound appears very clean and the fracture is minimally displaced Patient was given a dry nonstick dressing in the office today, given extra supplies for dressing changes Patient was also placed into a fingertips splint to prevent flexion at the DIP joint of the left index finger Patient is educated that he can now wash the laceration site with soap and water in the sink or the shower, but should avoid actively submerging the hand until follow-up Patient is also advised that he will require no further antibiotics, as his laceration appears to be healing well and without complication Patient was advised that he should continue to cover the laceration site when out and about, but if he is at home and able to keep it clean and dry he can remove the dressing Patient was amenable to this plan Patient will follow-up in 2 week for wound check with repeat x-rays, sooner with any acute concerns Orders: Orders XR hand LT min 3V Today M79.642 - Pain in left hand Coding Level of Care Code Global (19831) Diagnoses Open fracture of phalanx of left index finger S62.601B
== END 2024-07-06 09:34 | disposition home or self-care (01) ==
LOC: HO.HOS 08:51
DX: S62.601B Fracture of unspecified phalanx of left index finger, initial encounter for open fracture (principal)
CPT/HCPCS: 99213

== ENCOUNTER → 2024-07-06 08:52 | Outpatient (BNV) | payer OTHER, SELFPAY | PROVIDERS: Visit Provider Radiology Diagnostic Radiology | DX: M79.642 Pain in left hand (principal) | CPT/HCPCS: 73130 ==

== ENCOUNTER 2024-07-06 09:38 | Outpatient (REF) | payer OTHER, SELFPAY ==
--- NOTE | ~2024-07-06 | XR_ITS ---
EXAMINATION: XR HAND 3 OR MORE VIEWS LEFT HISTORY: M79.642 - Pain in left hand COMPARISON: Comparison is made with the prior examination dated 06/20/2024. FINDINGS: Three views of the left hand are submitted. Osseous mineralization is normal. Again seen is a comminuted fracture of the distal phalanx of the index finger. The fracture lines remain visible. No significant callus formation is noted. The joint spaces are preserved. The soft tissues are unremarkable. XR/XR hand LT min 3V IMPRESSION: Comminuted fracture of the distal phalanx of the index finger without change. Electronically signed by: Zachariah Bello MD 07/06/2024 09:53 AM EDT
== END 2024-07-06 09:39 | disposition home or self-care (01) ==
LOC: HO.HOSX 09:38
DX: M79.642 Pain in left hand (principal); S62.601B Fracture of unspecified phalanx of left index finger, initial encounter for open fracture
CPT/HCPCS: 73130; 99212

== ENCOUNTER 2024-07-20 11:02 | Outpatient (AMB) | payer OTHER, SELFPAY ==
--- NOTE | 2024-07-20 11:03 | MHC.OFFVIS ---
Vital Signs 07/20/24 11:06 Height 5 ft 6 in Weight 172 lb BMI 27.8 Handedness Right Intake Visit Reasons: OV-Left Index finger fracture - 06/06/24 - w/ XR Intake Note: Donald is a 59 year old right hand dominant male who presents today for a follow up and wound check for his open fracture of phalanx of left index finger, DOI: 06/06/24. At his last visit patient was placed into a fingertips splint to prevent flexion at the DIP joint of the left index finger. Patient reports his finger is feeling better. Denies pain, numbness and tingling. He has some redness and bruising around the 2nd DIP of the left hand. Allergies No Known Allergies Allergy (Verified 07/20/24 11:08) HPI HPI OV-Left Index finger fracture - 06/06/24 - w/ XR: Details: Donald is a 59 year old right hand dominant male who presents today for a follow up and wound check for his open fracture of phalanx of left index finger, DOI: 06/06/24. At his last visit patient was placed into a fingertips splint to prevent flexion at the DIP joint of the left index finger. Patient reports his finger is feeling better. Denies pain, numbness and tingling. He has some redness and bruising around the 2nd DIP of the left hand. COUNT INCLUDES [facility] Medical History (Updated 07/20/24 @ 11:08 by MICHAEL Granados) Open fracture of phalanx of left index finger Social History (Updated 07/20/24 @ 11:08 by MICHAEL Granados) Alcohol intake: never Patient Tobacco Use Status: Never used Tobacco Current occupational status: disabled Review of Systems Const All systems reviewed & are unremarkable except as noted in HPI and below Physical Exam Vital Signs: BMI result Body Mass Index 27.8 Extrem Other: Patient is alert, oriented, and in no acute distress. Neuro: Normal sensation of the tips of all digits of the left hand at this time Vascular: Cap refill brisk Pain: Patient reports no tenderness with palpation about the laceration and fracture site ROM: Patient is able to flex and extend all other digits of the left hand fully and without difficulty Patient is able to flex to 90 degrees with the MCP joint of the left index finger Skin: There is a large, semi circumferential almost healed laceration noted on the distal aspect of the left index finger just proximal to the nail General: No ecchymosis, erythema, or evidence of infection. Psych: Appears grossly normal Affect normal Attitude cooperative Assessment & Plan Assessment & Plan (1) Open fracture of phalanx of left index finger: Code(s): S62.601B - Fracture of unspecified phalanx of left index finger, initial encounter for open fracture Category: Medical Plan 1. Open fracture of distal phalanx of the index finger Date of injury 06/07/2024 Patient is educated about this injury Patient is educated about the typical recovery course At this time, patient was informed that we can likely manage this injury nonoperatively, as the wound appears very clean and the fracture is minimally displaced Patient was given a dry nonstick dressing in the office today, given extra supplies for dressing changes Patient was also placed into a fingertips splint to prevent flexion at the DIP joint of the left index finger Patient is educated that he can now wash the laceration site with soap and water in the sink or the shower, but should avoid actively submerging the hand until follow-up Patient is also advised that he will require no further antibiotics, as his laceration appears to be healing well and without complication Patient was advised that he should continue to cover the laceration site when out and about, but if he is at home and able to keep it clean and dry he can remove the dressing Patient was amenable to this plan Patient will follow-up in 2 week for wound check with repeat x-rays, sooner with any acute concerns Coding Level of Care Code Global (52016) Diagnoses Open fracture of phalanx of left index finger S62.601B
[2024-07-20 11:06] VITALS: BMI 27.8
== END 2024-07-20 11:18 | disposition home or self-care (01) ==
LOC: HO.HOS 11:03
DX: S62.601B Fracture of unspecified phalanx of left index finger, initial encounter for open fracture (principal)
CPT/HCPCS: 99213

== ENCOUNTER → 2024-07-20 11:02 | Outpatient (BNVA) | payer OTHER, SELFPAY | DX: S62.601D Fracture of unspecified phalanx of left index finger, subsequent encounter for fracture with routine healing (principal) | CPT/HCPCS: 99212 ==

== ENCOUNTER 2024-08-03 14:29 | Outpatient (AMB) | payer OTHER, SELFPAY ==
--- NOTE | 2024-08-03 14:30 | A.OFFVIS_ITS ---
Intake Visit Reasons: OV-Left Index finger fracture - 06/06/24 - w/ XR Intake Note: Donald is a 59 year old right hand dominant male who presents today for a follow up and wound check for his open fracture of phalanx of left index finger, DOI: 06/06/24. On 07/20/24 patient was also placed into a fingertips splint to prevent flexion at the DIP joint of the left index finger. Patient reports that he is doing well with no concerns at this time. Denies pain, numbness and tingling Allergies No Known Allergies Allergy (Verified 08/03/24 14:34) HPI HPI OV-Left Index finger fracture - 06/06/24 - w/ XR: Details: Donald is a 59 year old right hand dominant male who presents today for a follow up and wound check for his open fracture of phalanx of left index finger, DOI: 06/06/24. On 07/20/24 patient was also placed into a fingertips splint to prevent flexion at the DIP joint of the left index finger. Patient reports that he is doing well with no concerns at this time. Denies pain, numbness and tingling [facility] Medical History (Updated 07/20/24 @ 11:08 by MICHAEL Granados) Open fracture of phalanx of left index finger Social History (Updated 07/20/24 @ 11:08 by MICHAEL Granados) Alcohol intake: never Patient Tobacco Use Status: Never used Tobacco Current occupational status: disabled Review of Systems Const All systems reviewed & are unremarkable except as noted in HPI and below Physical Exam Extrem Other: Patient is alert, oriented, and in no acute distress. Neuro: Normal sensation of the tips of all digits of the left hand at this time Vascular: Cap refill brisk Pain: Patient reports no tenderness with palpation about the laceration and fracture site ROM: Patient is able to flex and extend all other digits of the left hand fully and without difficulty Patient is able to flex to 90 degrees with the MCP joint of the left index finger Skin: There is a large, semi circumferential, healed laceration noted on the distal aspect of the left index finger just proximal to the nail General: No ecchymosis, erythema, or evidence of infection. Psych: Appears grossly normal Affect normal Attitude cooperative Assessment & Plan Assessment & Plan (1) Open fracture of phalanx of left index finger: Code(s): S62.601B - Fracture of unspecified phalanx of left index finger, initial encou nter for open fracture Category: Medical Plan 1. Open fracture of distal phalanx of the index finger Date of injury 06/07/2024 Patient is educated about this injury Patient is educated about the typical recovery course At this time, patient was informed that we can likely manage this injury nonoperatively, as the wound appears very clean and the fracture is minimally displaced Patient was given a dry nonstick dressing in the office today, given extra supplies for dressing changes Patient was also placed into a fingertips splint to prevent flexion at the DIP joint of the left index finger Patient should only wear the splint with high-risk daytime activities Patient is educated that he can now wash the laceration site with soap and water in the sink or the shower, patient can also submerge of the hand as his laceration is well healed Patient is also advised that he will require no further antibiotics, as his laceration appears to be healing well and without complication Patient was amenable to this plan Patient will follow-up in 3-4 week for wound check with repeat x-rays, sooner with any acute concerns Coding Level of Care Code Global (03261) Diagnoses Open fracture of phalanx of left index finger S62.601B
== END 2024-08-03 14:44 | disposition home or self-care (01) ==
LOC: HO.HOS 14:29
DX: S62.601B Fracture of unspecified phalanx of left index finger, initial encounter for open fracture (principal)
CPT/HCPCS: 99213

== ENCOUNTER → 2024-08-03 14:29 | Outpatient (BNVA) | payer OTHER, SELFPAY | DX: S62.601D Fracture of unspecified phalanx of left index finger, subsequent encounter for fracture with routine healing (principal); X58.XXXD Exposure to other specified factors, subsequent encounter | CPT/HCPCS: 99212 ==

== ENCOUNTER 2024-09-02 09:17 | Outpatient (AMB) | payer OTHER, SELFPAY ==
--- NOTE | 2024-09-02 09:21 | MHC.OFFVIS ---
Intake Visit Reasons: OV-Left Index finger fracture - 06/06/24 - w/ XR Intake Note: Donald is a 59 year old right hand dominant male who presents today for a follow up and wound check for his open fracture of phalanx of left index finger, DOI: 06/06/24. On 08/03/24 patient was placed into a fingertips splint to prevent flexion at the DIP joint of the left index finger. Patient reports that he has not been wearing the splint as he thought he only needed to wear it while out. He has no pain but continues to have limited Flexion. Allergies No Known Allergies Allergy (Verified 08/03/24 14:34) HPI HPI OV-Left Index finger fracture - 06/06/24 - w/ XR: Details: Donald is a 59 year old right hand dominant male who presents today for a follow up and wound check for his open fracture of phalanx of left index finger, DOI: 06/06/24. On 08/03/24 patient was placed into a fingertips splint to prevent flexion at the DIP joint of the left index finger. Patient reports that he has not been wearing the splint as he thought he only needed to wear it while out. He has no pain but continues to have limited Flexion. [facility] Medical History (Updated 07/20/24 @ 11:08 by MICHAEL Granados) Open fracture of phalanx of left index finger Social History (Updated 07/20/24 @ 11:08 by MICHAEL Granados) Alcohol intake: never Patient Tobacco Use Status: Never used Tobacco Current occupational status: disabled Review of Systems Const All systems reviewed & are unremarkable except as noted in HPI and below Physical Exam Extrem Other: Patient is alert, oriented, and in no acute distress. Neuro: Normal sensation of the tips of all digits of the left hand at this time Vascular: Cap refill brisk Pain: Patient reports no tenderness with palpation about the laceration and fracture site ROM: Patient is able to flex and extend all other digits of the left hand fully and without difficulty Patient is able to flex to 90 degrees with the MCP joint of the left index finger, with encouragement is able to get to a closed fist with the left index finger Skin: There is a large, semi circumferential, healed laceration noted on the distal aspect of the left index finger just proximal to the nail General: No ecchymosis, erythema, or evidence of infection. Psych: Appears grossly normal Affect normal Attitude cooperative Assessment & Plan Assessment & Plan (1) Open fracture of phalanx of left index finger: Code(s): S62.601B - Fracture of unspecified phalanx of left index finger, initial encounter for open fracture Category: Medical Plan 1. Open fracture of distal phalanx of the index finger Date of injury 06/07/2024 Patient is educated about this injury Patient is educated about the typical recovery course At this time, patient is educated that he can gradually return back to full normal activity, and will require no further splinting or follow-up However, as the patient is experiencing some mild stiffness of the left index finger, I feel a course of occupational therapy will benefit him tremendously Patient is also advised that he will require no further antibiotics, as his laceration appears to be healing well and without complication Patient was amenable to this plan Patient will follow-up in 3-4 week for wound check with repeat x-rays, sooner with any acute concerns Orders: Orders OT Evaluation and Treatment Today S62.601B - Fracture of unspecified phalanx of left index finger, initial encounter for open fracture Coding Level of Care Code Est Pt Level 3 (32012) Global (47155) Diagnoses Open fracture of phalanx of left index finger S62.601B
== END 2024-09-02 09:30 | disposition home or self-care (01) ==
LOC: HO.HOS 09:18
DX: S62.601B Fracture of unspecified phalanx of left index finger, initial encounter for open fracture (principal)
CPT/HCPCS: 99024; 99213

== ENCOUNTER → 2024-09-02 09:17 | Outpatient (BNVA) | payer OTHER, SELFPAY | DX: S62.601D Fracture of unspecified phalanx of left index finger, subsequent encounter for fracture with routine healing (principal); X58.XXXD Exposure to other specified factors, subsequent encounter | CPT/HCPCS: 99212 ==

== ENCOUNTER 2024-09-09 14:02 | Outpatient (RCR) | payer OTHER, SELFPAY ==
--- NOTE | 2024-09-12 09:34 | MHC.OT.OEV ---
[address] [phone] F: [phone] Occupational Therapy Evaluation Patient Name: Donald Ventura Diagnosis: (L) open fx of IF Date of Onset: 06/06/24 Date of Surgery: Attending Provider: Lei Kimbrough Prescribed Treatment: MD Follow Up Appointment: History of Current Condition: Patient 59 y/o German speaking male with prior medical hx (per report) of seizers, OA, DM II, open phalanx fx on (L) IF s/p 13 weeks from dropping an air compressor on his finger. He was referred to skilled OT for stiffness of his DIP. He reports (I)ADL/IADLs and lives with his and children He currently is on disability. He Reports no pain, no numbness/tingling. He would like to have a short course of OT for exercises to be able to learn how to move his finger. Significant Medical History: Precautions/Contraindications: Patient Goals: Hand Dominance: Right Observations: QuickDASH Score: Prior Level of Function and Occupation Self Care, Employment, Leisure: On disability (I)ADLs/IADLs Living Situation, Family and/or Social Support: Lives with and children Current Level of Function and Occupation Self Care, Employment, Leisure: Sleep: sleeps through the night Driving: Vision: Balance: Pain Assessment Pain Score: Pain Scale Used: Pain Location and Description: 0/10 Aggravating Factors: Alleviating Factors: Skin and Soft Tissue Assessment Skin and Soft Tissue: Comments: scar on DIP on medial side of nail no sensitivity Nerve assessment Ulnar Nerve: Median Nerve: Radial Nerve: Comments: Sensory Assessment Temperature: Light Touch: Proprioception: Vibration: Comments: Edema Assessment Upper Extremity: Lower Extremity: Comments: Dexterity Assessment Dexterity: Comments: WFL Special Tests Comments: AROM(PROM) Strength Cervical Cervical Flexion: Cervical Extension: Cervical Lateral Flexion: Cervical Rotation: Comments: WFL Shoulder Flexion: Extension: Abduction: Internal Rotation: External Rotation: Comments: WFL Flexion: Extension: Abduction: Internal Rotation: External Rotation: Comments: WFL Elbow Flexion: Extension: Pronation: Supination: Comments: WFL Flexion: Extension: Pronation: Supination: Comments: WFL Wrist Flexion: Extension: Ulnar Deviation: Radial Deviation: Comments: WFL Flexion: Extension: Ulnar Deviation: Radial Deviation: Comments: WFL Thumb Thumb CMC Flexion: Thumb MCP Flexion: Thumb IP Flexion: Radial Abduction: Palmar Abduction: [place] (K[place]andji 0-10): Comments: Digits Index MCP: WFL PIP: 40*/58* passively DIP: 60*/ 64* passively Long MCP: PIP: DIP: Ring MCP: PIP: DIP: Small MCP: PIP: DIP: Comments: .5cm palm to tip Gross Grasp: (R)99lbs. (L)90lbs. Lateral Pinch: Two-Point Pinch: Three-Jaw Markie: Comments: Patient Education Primary Language: [employer] Required: No Current Knowledge: Understands information with skills for self-management Teaching Method: Verbal Education Needs Identified on Evaluation: Exercise How did patient/family demonstrate learning? Patient demonstrates Patient verbalizes Barriers to Learning: None Readiness for Learning: Accepting Who was educated? Patient Comments: Plan of Care Assessment: Based on initial OT evaluation patient presents with limited IF DIP ROM and scaring. It was observed that patient guards the fingers by sticking it out straight when performing tasks. Quick DASH= 25% indicating patient's perception of UE impairment during the day. Due to the documented impairments it is recommended patient receive a short course of OT intervention in order to increase function of his IF during self care tasks. Thank you for your referral. STG Duration: 2 weeks Short Term Goals: Patient will increase IF DIP to 50* of flexion Patient will be (I) during HEP LTG Duration: Custodial Goals: Frequency and Duration: The patient will be seen 1x a week for 2 weeks Treatment Plan: Therapeutic Exercise Therapeutic Activity Home Exercise Program Splinting Patient Education Desensitization/Sensory Re-ed Edema Control ADL Training Ultrasound NMES Iontophoresis Paraffin Fluidotherapy MHP Cold Packs Joint Mobilization Soft Tissue Mobilization Kinesiotaping Other (see comments) Skilled OT eval and treat Electronically Signed By: HERBIE Fiore/Delia, CLT Reviewed/agree with student documentation: Therapist: Please sign and return to therapist, Thank you for your referral.
--- NOTE | 2024-10-18 14:22 | MHC.OT.DC ---
[address] [phone] F: [phone] Occupational Therapy Discharge Note Patient Name: Donald Ventura Provider: Lei Kimbrough Diagnosis: (L) open fx of IF Date of Surgery: Date of Evaluation: 09/09/24 Date of Discharge: Treatments to Date: 1 Cancellations to Date: No Shows to Date: Discharge Status: Visit Non-compliance Discharge Summary: Patient did not return to OT after initial OT eval Electronically Signed By: HERBIE Fiore/Delia, CLT Reviewed/agree with student documentation: Therapist: Please Sign and return to therapist, thank you for your referral.
== END 2024-10-18 14:23 | disposition home or self-care (01) ==
LOC: HO.OT 14:02
PROVIDERS: PCP Internal Medicine
DX: S62.601D Fracture of unspecified phalanx of left index finger, subsequent encounter for fracture with routine healing (principal)
CPT/HCPCS: 97110; 97165; 97530